=== PATIENT | female | born 1935 ===

== ENCOUNTER 2017-06-29 06:00 | Outpatient (CLI) | payer OTHER ==
[~2017-06-29] VITALS: Ht 175.3 cm; Wt 65.8 kg
[~2017-06-29 06:00] MED LIST: ADULT LOW DOSE81 M1 PO; CHLORTHALIDONE25 MG PO; DERMOTIC20 ML OTIC; LIPO-FLAVONOID1 EACH PO; PROCARD PO; SINGULAIR10 MG PO
== END 2017-06-29 06:05 | disposition home or self-care (01) ==
LOC: LAB 06:00
DX: C64.9 Malignant neoplasm of unspecified kidney, except renal pelvis (principal); Z01.812 Encounter for preprocedural laboratory examination